=== PATIENT | female | born 1975 | race Caucasian/White ===

== ENCOUNTER 2017-03-12 21:29 | Emergency (ER) | payer OTHER, MEDICAID ==
[~2017-03-12] VITALS: Ht 167.6 cm; Wt 77.1 kg
[~2017-03-12 21:29] MED LIST: LITH300C3 PO; QUET200T44 PO; VENL75TA PO
[2017-03-12 21:35] VITALS: BP 141/90
[2017-03-13] MEDS ORDERED: MORPHINE SULFATE 4 MG/ML SYRG IM ONE (00:45)
== END 2017-03-13 01:47 | disposition home or self-care (01) ==
LOC: EDSEX 21:29 → EDBD 21:29 → ER 21:32
DX: S82.391A Other fracture of lower end of right tibia, initial encounter for closed fracture (principal); F17.210 Nicotine dependence, cigarettes, uncomplicated; W19.XXXA Unspecified fall, initial encounter; Y93.89 Activity, other specified; Y99.8 Other external cause status; Y92.89 Other specified places as the place of occurrence of the external cause
CPT/HCPCS: 29515; 73610; 96372; 99284; J2270; 29125

== ENCOUNTER 2021-03-05 13:00 | Emergency (ER) | payer OTHER, MEDICAID ==
[~2021-03-05] VITALS: Ht 167.6 cm; Wt 72.6 kg
[~2021-03-05 13:00] MED LIST changes: +VENL1TAB99 PO; -VENL75TA PO
[2021-03-05 14:34] VITALS: BP 108/53
== END 2021-03-05 14:40 | disposition home or self-care (01) ==
LOC: ER 13:00
DX: S20.212A Contusion of left front wall of thorax, initial encounter (principal); F17.210 Nicotine dependence, cigarettes, uncomplicated; W18.2XXA Fall in (into) shower or empty bathtub, initial encounter; Y93.89 Activity, other specified; Y92.091 Bathroom in other non-institutional residence as the place of occurrence of the external cause; Y99.8 Other external cause status
CPT/HCPCS: 71101

== ENCOUNTER 2021-03-15 09:16 | Emergency (ER) | payer OTHER, MEDICAID ==
[~2021-03-15] VITALS: Ht 162.6 cm; Wt 65.8 kg
[2021-03-15 10:15] LABS: Basophils # (auto) 0 10 ^3/uL (0-0.2); Lymphocytes # (auto) 1.4 10 ^3/uL (0.4-5.4); Monocytes # (auto) 0.4 10 ^3/uL (0-1.3); Neutrophils # (auto) 2.5 10 ^3/uL (1.6-8.6); Nucleated Red Blood Cells % 0.1 %; White Blood Cell 4.5 10^3/uL (4.4-10.8)
[2021-03-15 10:17] LABS: Basophils % (auto) 0.5 % (0.0-2.0); Eosinophils # (auto) 0.1 10 ^3/uL (0-0.8); Hematocrit 44.4 % (36.0-46.0); Hemoglobin 15.4 g/dL (12.2-16.2); Lymphocytes % (auto) 32.2 % (10.0-50.0); Mean Corpuscular Hemoglobin 35.7 pg (28.0-32.0); Mean Corpuscular Hgb Conc. 34.7 g/dL (32.0-36.0); Mean Corpuscular Volume 102.8 fL (80.0-100.0); Monocytes % (auto) 8.6 % (0.0-12.0); Neutrophils % (auto) 55.7 % (37.0-80.0); Platelet Count (auto) 191 10^3/uL (140-450); Red Blood Cells 4.31 10^6/uL (4.0-5.20); Red Cell Distribution Width 13.4 % (11.8-14.3)
[2021-03-15 10:41] LABS: Albumin 3.7 g/dL (3.4-5.0); Anion Gap 8 (5-15); Blood Urea Nitrogen 7 mg/dL (7-18); Calcium 8.6 mg/dL (8.5-10.1); Carbon Dioxide 23 mmol/L (21-32); Chloride 110 mmol/L (98-107); Glucose 61 mg/dL (74-106); Sodium 141 mmol/L (136-145)
[2021-03-15 10:46] LABS: Alanine Aminotransferase 35 U/L (13-56); Alkaline Phosphatase 127 U/L (45-117); Aspartate Aminotransferase 44 U/L (15-37); BUN/Creatinine Ratio 10.3; Bilirubin, Total 0.6 mg/dL (0.2-1.0); GFR African American 120 mL/min; GFR Non-African American 99 mL/min; Total Protein 6.5 g/dL (6.4-8.2)
[2021-03-15 11:24] VITALS: BP 122/63
== END 2021-03-15 17:09 | disposition home or self-care (01) ==
LOC: EDBD 09:16 → ER 09:16
DX: R07.89 Other chest pain (principal); M79.18 Myalgia, other site; F17.210 Nicotine dependence, cigarettes, uncomplicated; Z90.710 Acquired absence of both cervix and uterus
CPT/HCPCS: 36415; 71045; 71250; 80053; 83880; 84484; 85025; 85049; 93005

== ENCOUNTER 2022-06-11 11:21 | Emergency (ER) | payer OTHER, MEDICAID ==
[~2022-06-11] VITALS: Ht 167.6 cm; Wt 57.0 kg
[~2022-06-11 11:21] MED LIST changes: -QUET200T44 PO; +QUET200T45 PO
[2022-06-11 12:48] VITALS: BP 141/80
[2022-06-11] MEDS ORDERED: HYDROcodone-ACET 5/325MG TAB PO ONE (13:00)
[2022-06-11] MEDS ORDERED: IBUP800T27 PO (13:02)
[2022-06-11] MEDS ORDERED: IBUPROFEN 800 MG TAB PO ONE (13:15)
== END 2022-06-11 13:24 | disposition home or self-care (01) ==
LOC: ER 11:21
DX: S92.322A Displaced fracture of second metatarsal bone, left foot, initial encounter for closed fracture (principal); S92.332A Displaced fracture of third metatarsal bone, left foot, initial encounter for closed fracture; S92.342A Displaced fracture of fourth metatarsal bone, left foot, initial encounter for closed fracture; F17.210 Nicotine dependence, cigarettes, uncomplicated; Z90.710 Acquired absence of both cervix and uterus; Z79.1 Long term (current) use of non-steroidal anti-inflammatories (NSAID); Z79.899 Other long term (current) drug therapy; W20.8XXA Other cause of strike by thrown, projected or falling object, initial encounter; Y93.89 Activity, other specified; Y92.89 Other specified places as the place of occurrence of the external cause; Y99.8 Other external cause status
CPT/HCPCS: 29515; 73630

== ENCOUNTER 2022-07-09 09:56 | Day surgery (SDC) | payer OTHER, MEDICAID ==
[2022-07-07 12:56] LABS: Basophils # (auto) 0 10 ^3/uL (0-0.2); Eosinophils # (auto) 0.3 10 ^3/uL (0-0.8); Lymphocytes # (auto) 1.2 10 ^3/uL (0.4-5.4); Neutrophils # (auto) 3.9 10 ^3/uL (1.6-8.6)
[2022-07-07 12:58] LABS: Basophils % (auto) 0.5 % (0.0-2.0); Hematocrit 45.3 % (36.0-46.0); Hemoglobin 15.5 g/dL (12.2-16.2); Lymphocytes % (auto) 19.7 % (10.0-50.0); Mean Corpuscular Hemoglobin 35.1 pg (28.0-32.0); Mean Corpuscular Hgb Conc. 34.1 g/dL (32.0-36.0); Mean Corpuscular Volume 102.8 fL (80.0-100.0); Monocytes # (auto) 0.7 10 ^3/uL (0-1.3); Monocytes % (auto) 10.9 % (0.0-12.0); Neutrophils % (auto) 63.9 % (37.0-80.0); Nucleated Red Blood Cells % 0.1 %; Red Blood Cells 4.41 10^6/uL (4.0-5.20); Red Cell Distribution Width 12.3 % (11.8-14.3); White Blood Cell 6.1 10^3/uL (4.4-10.8)
[2022-07-07 13:03] LABS: Urine Bacteria NONE SEEN /hpf (None Seen); Urine Blood Negative /uL (Negative); Urine Hyaline Cast FEW /lpf (0 - 2); Urine Mucus FEW (None Seen); Urine Specific Gravity 1.028 (1.001-1.035); Urine WBC 31 /hpf (0 - 5)
[2022-07-07 13:06] LABS: Albumin 3.8 g/dL (3.4-5.0); Calcium 9.3 mg/dL (8.5-10.1)
[2022-07-07 13:11] LABS: BUN/Creatinine Ratio 12.7; Bilirubin, Total 0.6 mg/dL (0.2-1.0)
[2022-07-07 13:12] LABS: INR 0.94 (0.9-1.15); Partial Thromboplastin Time 24.3 sec (24.6-33.4)
[~2022-07-09] VITALS: Ht 167.6 cm; Wt 55.3 kg
[~2022-07-09 09:56] MED LIST changes: +HYDR1TAB97 PO; +IBUP800T27 PO; +METH18TA5 PO
[2022-07-09] MEDS ORDERED: PHENYLEPHRINE HCL 10 MG/ML VL IV ONE (09:57)
[2022-07-09] MEDS ORDERED: BUPIVACAINE HCL 0.25% P/F 10 ML VIAL ONE (10:14)
[2022-07-09] MEDS ORDERED: ceFAZolin 1GM/50ML 50 ML IV ONE (11:15)
[2022-07-09] MEDS ORDERED: fentaNYL CITRATE 100 MCG/2 ML VL ONE (11:44)
[2022-07-09] MEDS ORDERED: MIDAZOLAM HCL 2MG/2ML 2ml VIAL (1mg/ml) ONE (11:44)
[2022-07-09] MEDS ORDERED: MEPERIDINE HCL (50 MG/ML) 1 ML VIAL ONE (11:45)
[2022-07-09] MEDS ORDERED: CEPH500C PO (12:00)
[2022-07-09] MEDS ORDERED: ACE650RS PR (12:00)
[2022-07-09] MEDS ORDERED: ONDANSETRON HCL 4 MG/2 ML VIAL IV PRN (12:30)
[2022-07-09] MEDS ORDERED: ePHEDrine SULFATE 50 MG/ML AMP IV PRN (12:30)
[2022-07-09] MEDS ORDERED: MORPHINE SULFATE INJ 2 MG/ml SYRG IV PRN (12:30)
[2022-07-09] MEDS ORDERED: MIDAZOLAM HCL 2MG/2ML 2ml VIAL (1mg/ml) IV PRN (12:30)
[2022-07-09] MEDS ORDERED: KETOROLAC TROMETH 30 MG/ML 1ML VIAL IV ONE (12:30)
[2022-07-09] MEDS ORDERED: LABETALOL HCL 5 MG/ML 4ML SYRINGE IV PRN (12:30)
[2022-07-09] MEDS ORDERED: DexAMETHasone SOD PHOS 10MG/1ML VIAL INJ ONE (14:31)
[2022-07-09] MEDS ORDERED: HYDROmorphone HCL 2 MG/ML VL/or syr ONE (16:16)
[2022-07-09] MEDS: HYDROmorphone HCL 2 MG/ML VL/or syr IV PRN ×3 (16:20→16:48)
[2022-07-09 17:00] VITALS: BP 106/63
== END 2022-07-09 17:28 | disposition home or self-care (01) ==
LOC: SUR 09:56
PROVIDERS: ATTEND Student in an Organized Health Care Education/Training Program
DX: S92.322A Displaced fracture of second metatarsal bone, left foot, initial encounter for closed fracture (principal); S92.332A Displaced fracture of third metatarsal bone, left foot, initial encounter for closed fracture; X58.XXXA Exposure to other specified factors, initial encounter; Y93.89 Activity, other specified; Y92.89 Other specified places as the place of occurrence of the external cause; Y99.8 Other external cause status; S93.324A Dislocation of tarsometatarsal joint of right foot, initial encounter; F41.9 Anxiety disorder, unspecified; F32.A Depression, unspecified; Z20.822 Contact with and (suspected) exposure to COVID-19
CPT/HCPCS: 28615; 28730; 36415; 73620; 73630; 76000; 80053; 81001; 81025; 84702; 85025; 85610; 85730; C1713; C1769; J0690; J1100; J1170; J2175; J2250; J2370; J3010; J3490; U0003

== ENCOUNTER 2023-02-26 13:45 | Emergency (ER) | payer OTHER, MEDICAID ==
[~2023-02-26] VITALS: Ht 167.6 cm; Wt 54.5 kg
[~2023-02-26 13:45] MED LIST changes: +ACE650RS PR; +CEPH500C PO; +IBUP-1456 PO; -IBUP800T27 PO
[2023-02-26 14:00] VITALS: BP 111/61
[2023-02-26] MEDS ORDERED: KETOROLAC TROMETH 60MG/2ML VIAL IM ONE (15:45)
== END 2023-02-26 16:09 | disposition home or self-care (01) ==
LOC: ER 13:45
DX: S93.602A Unspecified sprain of left foot, initial encounter (principal); Z88.6 Allergy status to analgesic agent; Z88.8 Allergy status to other drugs, medicaments and biological substances; Z90.710 Acquired absence of both cervix and uterus; W18.09XA Striking against other object with subsequent fall, initial encounter; Y93.89 Activity, other specified; Y92.89 Other specified places as the place of occurrence of the external cause; Y99.8 Other external cause status
CPT/HCPCS: 73610; 73630; 96372; 99284; J1885; J7030

== ENCOUNTER 2023-02-28 02:06 | Inpatient (IN) | payer OTHER, MEDICAID ==
[~2023-02-28] VITALS: Ht 167.6 cm; Wt 57.3 kg
[2023-02-28 03:03] LABS: Eosinophils # (auto) 0.4 10 ^3/uL (0-0.8); Hemoglobin 15.3 g/dL (12.2-16.2); Monocytes # (auto) 0.4 10 ^3/uL (0-1.3); Neutrophils # (auto) 5.7 10 ^3/uL (1.6-8.6); White Blood Cell 7.9 10^3/uL (4.4-10.8)
[2023-02-28 03:04] LABS: Basophils # (auto) 0.1 10 ^3/uL (0-0.2); Basophils % (auto) 0.7 % (0.0-2.0); Hematocrit 44.1 % (36.0-46.0); Lymphocytes # (auto) 1.4 10 ^3/uL (0.4-5.4); Lymphocytes % (auto) 17.8 % (10.0-50.0); Mean Corpuscular Hemoglobin 35.8 pg (28.0-32.0); Mean Corpuscular Hgb Conc. 34.8 g/dL (32.0-36.0); Monocytes % (auto) 4.6 % (0.0-12.0); Neutrophils % (auto) 71.9 % (37.0-80.0); Red Blood Cells 4.28 10^6/uL (4.0-5.20); Red Cell Distribution Width 13.1 % (11.8-14.3)
[2023-02-28 03:19] LABS: Albumin 3.8 g/dL (3.4-5.0); Calcium 9.1 mg/dL (8.5-10.1); Potassium 4.1 mmol/L (3.5-5.1)
[2023-02-28 03:23] LABS: BUN/Creatinine Ratio 7.9 (10.0-20.0); Bilirubin, Total 0.4 mg/dL (0.2-1.0); Total Protein 6.4 g/dL (6.4-8.2)
[2023-02-28] MEDS ORDERED: IOHEXOL 350 MG/ML 100ML IJ ONE (05:20)
[2023-02-28] MEDS ORDERED: SIMV40TA18 PO (10:44)
[2023-02-28] MEDS ORDERED: NITROGLYCERIN 0.4 MG SL TAB SL PRN (10:45)
[2023-02-28] MEDS ORDERED: MORPHINE SULFATE INJ 2 MG/ml SYRG IV PRN (10:45)
[2023-02-28] MEDS ORDERED: SODIUM CHLORIDE 0.9% 1,000 ML IV ONE (11:45)
[2023-02-28] MEDS: ACETAMINOPHEN 325 MG TAB PO PRN (19:59)
[2023-02-28] MEDS: QUEtiapine FUMARATE 100 MG TAB PO SCH ×2 (22:00→22:50)
[2023-02-28] MEDS: ATORVASTATIN 20 MG TAB PO SCH ×2 (23:01→23:05)
[2023-03-01 04:52] LABS: Eosinophils # (auto) 0.4 10 ^3/uL (0-0.8); Hemoglobin 15.2 g/dL (12.2-16.2); Monocytes # (auto) 0.4 10 ^3/uL (0-1.3); Neutrophils # (auto) 4.2 10 ^3/uL (1.6-8.6); Nucleated Red Blood Cells % 0.1 %
[2023-03-01 04:54] LABS: Basophils # (auto) 0.1 10 ^3/uL (0-0.2); Basophils % (auto) 0.8 % (0.0-2.0); Hematocrit 43.2 % (36.0-46.0); Lymphocytes # (auto) 1.2 10 ^3/uL (0.4-5.4); Mean Corpuscular Hemoglobin 36.1 pg (28.0-32.0); Mean Corpuscular Hgb Conc. 35.2 g/dL (32.0-36.0); Mean Corpuscular Volume 102.6 fL (80.0-100.0); Monocytes % (auto) 6.2 % (0.0-12.0); Red Blood Cells 4.21 10^6/uL (4.0-5.20); Red Cell Distribution Width 13.1 % (11.8-14.3); White Blood Cell 6.2 10^3/uL (4.4-10.8)
[2023-03-01 05:08] LABS: Albumin 3.6 g/dL (3.4-5.0); Calcium 9.2 mg/dL (8.5-10.1); Potassium 3.5 mmol/L (3.5-5.1)
[2023-03-01 05:13] LABS: BUN/Creatinine Ratio 12.1 (10.0-20.0); Bilirubin, Total 0.7 mg/dL (0.2-1.0); Total Protein 6.4 g/dL (6.4-8.2)
[2023-03-01] MEDS: ACETAMINOPHEN 325 MG TAB PO PRN ×2 (06:55→20:48)
[2023-03-01] MEDS ORDERED: LORazepam 2MG/ML-1ML VIAL IV PRN (09:45)
[2023-03-01] MEDS: VENLAFAXINE HCL 37.5mg XR cap PO SCH (10:00)
[2023-03-01] MEDS: LITHIUM CARBONATE 300 MG TAB PO SCH (11:42)
[2023-03-01] MEDS: LORazepam 2MG/ML-1ML VIAL IV PRN ×2 (11:42→20:48)
[2023-03-01] MEDS: FOLIC ACID 1 MG, MULTIPLE VITAMIN 10 ML, MAGNESIUM SULF SDV 50% 8 MEQ, THIAMINE INJ 100... INJ SCH ×5 (12:00)
[2023-03-01 13:19] VITALS: BP 119/65
[2023-03-01 17:00] VITALS: BP 110/62
[2023-03-01 22:00] VITALS: BP 107/64
[2023-03-01] MEDS: QUEtiapine FUMARATE 100 MG TAB PO SCH (22:00)
[2023-03-02] VITALS (7 sets, daily range): BP systolic 100–121; BP diastolic 56–86
[2023-03-02] MEDS: LORazepam 2MG/ML-1ML VIAL IV PRN ×3 (01:03→18:55)
[2023-03-02 06:22] LABS: Cholesterol 132 mg/dL (< 200); HDL Cholesterol 95 mg/dL (40-59); LDL Cholesterol 34 mg/dL (< 100); Triglycerides 84 mg/dL (< 150)
[2023-03-02] MEDS: LITHIUM CARBONATE 300 MG TAB PO SCH (09:44)
[2023-03-02] MEDS: ACETAMINOPHEN 325 MG TAB PO PRN (09:44)
[2023-03-02] MEDS: VENLAFAXINE HCL 37.5mg XR cap PO SCH (09:44)
[2023-03-02] MEDS: FOLIC ACID 1 MG, MULTIPLE VITAMIN 10 ML, MAGNESIUM SULF SDV 50% 8 MEQ, THIAMINE INJ 100... INJ SCH ×5 (14:04)
[2023-03-02] MEDS ORDERED: NICOTINE 14 MG/24HR TOPICAL PATCH TD ONE (18:45)
[2023-03-02] MEDS: ATORVASTATIN 20 MG TAB PO SCH (22:02)
[2023-03-02] MEDS: QUEtiapine FUMARATE 100 MG TAB PO SCH (22:03)
[2023-03-03 05:00] VITALS: BP_SYST 102; BP_SYST 108; BP_DIAS 54; BP_DIAS 63
[2023-03-03 09:00] VITALS: BP 102/52
[2023-03-03] MEDS: NICOTINE 14 MG/24HR TOPICAL PATCH TD SCH ×2 (10:00→10:03)
[2023-03-03] MEDS: VENLAFAXINE HCL 37.5mg XR cap PO SCH (10:02)
[2023-03-03] MEDS: LITHIUM CARBONATE 300 MG TAB PO SCH (10:02)
[2023-03-03] MEDS: FOLIC ACID 1 MG, MULTIPLE VITAMIN 10 ML, MAGNESIUM SULF SDV 50% 8 MEQ, THIAMINE INJ 100... INJ SCH ×5 (10:34)
== END 2023-03-03 13:10 | disposition home or self-care (01) | DRG 914 ==
LOC: EDBD 02:06 → ER 02:06 → TELE 10:36 → TELE-WESTW 03-01 13:11
PROVIDERS: ADMIT Nurse Practitioner Family; ATTEND Internal Medicine Geriatric Medicine
DX: S09.90XA Unspecified injury of head, initial encounter (principal); R55 Syncope and collapse; F31.9 Bipolar disorder, unspecified; F41.9 Anxiety disorder, unspecified; R79.89 Other specified abnormal findings of blood chemistry; Y90.8 Blood alcohol level of 240 mg/100 ml or more; F17.210 Nicotine dependence, cigarettes, uncomplicated; S01.312A Laceration without foreign body of left ear, initial encounter; R56.9 Unspecified convulsions; W18.39XA Other fall on same level, initial encounter; Z81.8 Family history of other mental and behavioral disorders; Z82.49 Family history of ischemic heart disease and other diseases of the circulatory system; Z83.3 Family history of diabetes mellitus; Z85.41 Personal history of malignant neoplasm of cervix uteri; Z82.5 Family history of asthma and other chronic lower respiratory diseases; Z90.710 Acquired absence of both cervix and uterus; Y93.89 Activity, other specified; Y92.89 Other specified places as the place of occurrence of the external cause; Y99.8 Other external cause status
CPT/HCPCS: 36415; 70450; 70551; 71275; 72125; 80053; 80061; 80178; 80320; 82306; 83690; 83880; 84443; 84484; 84702; 85025; 85379; 93005; 93306; 93886; 95819; 96360; 97163; G0378